=== PATIENT | male | born 1965 | race Caucasian/White ===

== ENCOUNTER 2018-04-16 21:27 | Emergency (ER) | payer BC ==
[~2018-04-16] VITALS: Ht 175.3 cm; Wt 74.8 kg
[2018-04-16 21:27] VITALS: BP 146/88
[2018-04-16] MEDS ORDERED: SULF1TAB24 PO (21:59)
[2018-04-16] MEDS ORDERED: LIDOCAINE 1% Multi-Dose 20 ML VIAL. ONE (22:00)
[2018-04-16] MEDS ORDERED: cefTRIAXone IM 1 GM VIAL IM ONE (22:00)
[2018-04-16] MEDS ORDERED: cefTRIAXone IV Push 1 GM VIAL. IVP ONE (22:00)
[2018-04-16] MEDS ORDERED: LIDOCAINE 1% Multi-Dose 20 ML VIAL. IM ONE (22:00)
--- NOTE | 2018-04-16 22:03 | PHYS DOC ---
Adult General Chief Complaint Chief Complaint lleg pain HPI HPI 52 years old male presented emergency department with redness and swelling on the right thigh after given himself a testosterone shot. He noticed warmth redness and swelling 10 x 10 cm Review of Systems Review of Systems Constitutional: Denies fever or chills [] Eyes: Denies change in visual acuity, redness, or eye pain [] HENT: Denies nasal congestion or sore throat [] Respiratory: Denies cough or shortness of breath [] Cardiovascular: No additional information not addressed in HPI [] GI: Denies abdominal pain, nausea, vomiting, bloody stools or diarrhea [] : Denies dysuria or hematuria [] Musculoskeletal: Denies back pain or joint pain [] Integument: Cellulitis[] Neurologic: Denies headache, focal weakness or sensory changes [] Endocrine: Denies polyuria or polydipsia [] All other systems were reviewed and found to be within normal limits, except as documented in this note. Current Medications Current Medications Current Medications Medications (Trade) Dose Ordered Sig/Francesco Start Time Stop Time Status Last Admin Dose Admin Ceftriaxone Sodium (Rocephin Im) 1 gm 1X ONCE 04/16/18 22:00 04/16/18 22:01 UNV Lidocaine HCl 50 ml 1X ONCE 04/16/18 22:00 04/16/18 22:01 UNV Allergies Allergies Allergies Coded Allergies Type Severity Reaction Last Updated Verified Penicillins Allergy Unknown 04/16/18 Yes Physical Exam Physical Exam Constitutional: Well developed, well nourished, no acute distress, non-toxic appearance. [] HENT: Normocephalic, atraumatic, bilateral external ears normal, oropharynx moist, no oral exudates, nose normal. [] Eyes: PERRLA, EOMI, conjunctiva normal, no discharge. [] Neck: Normal range of motion, no tenderness, supple, no stridor. [] Cardiovascular:Heart rate regular rhythm, no murmur [] Lungs & Thorax: Bilateral breath sounds clear to auscultation [] Abdomen: Bowel sounds normal, soft, no tenderness, no masses, no pulsatile masses. [] Skin: Warm, dry, no erythema, no rash. [] Back: No tenderness, no CVA tenderness. [] Extremities: and cellulitis on the right thigh [] Neurologic: Alert and oriented X 3, normal motor function, normal sensory function, no focal deficits noted. [] Psychologic: Affect normal, judgement normal, mood normal. [] Current Patient Data Vital Signs Vital Signs Date Time Temp Pulse Resp B/P (MAP) Pulse Ox O2 Delivery O2 Flow Rate FiO2 04/16/18 21:27 98.8 86 18 99 Room Air EKG EKG [] Radiology/Procedures Radiology/Procedures [] Course & Med Decision Making Course & Med Decision Making Pertinent Labs and Imaging studies reviewed. (See chart for details) [] Final Impression Final Impression [] Problems: (1) Cellulitis Qualifiers: Qualified Codes: L03.317 - Cellulitis of buttock Dragon Disclaimer Dragon Disclaimer This electronic medical record was generated, in whole or in part, using a voice recognition dictation system. MICHAEL PALMA MD Apr 16, 2018 22:03
[2018-04-16] MEDS ORDERED: LIDOCAINE 1% Multi-Dose 20 ML VIAL. IJ ONE (22:15)
== END 2018-04-16 22:30 | disposition home or self-care (01) ==
LOC: ER 21:27
DX: L03.317 Cellulitis of buttock (principal); L03.115 Cellulitis of right lower limb; Z88.0 Allergy status to penicillin
CPT/HCPCS: 96372; 99283; J0696